=== PATIENT | female | born 1945 | race Native Hawaiian/Other Pacific Islander ===

== ENCOUNTER 2017-10-04 09:29 | Outpatient (CLI) | payer OTHER | END 2017-10-04 19:06 | disposition home or self-care (01) | LOC: MAMMO 09:29 | DX: Z12.31 Encounter for screening mammogram for malignant neoplasm of breast (principal) ==

== ENCOUNTER 2017-11-03 12:51 | Outpatient (CLI) | payer OTHER | END 2017-11-03 19:22 | disposition home or self-care (01) | LOC: MAMMO 12:51 | DX: R92.8 Other abnormal and inconclusive findings on diagnostic imaging of breast (principal) ==

== ENCOUNTER 2018-07-11 20:15 | Outpatient (CLI) | payer OTHER ==
[2018-07-11] MEDS ORDERED: ZESTRIL40 MG PO (21:03)
== END 2018-07-11 20:26 | disposition short-term general hospital (02) ==
LOC: AMB 20:15
DX: R42 Dizziness and giddiness (principal)
CPT/HCPCS: A0425; A0427

== ENCOUNTER 2018-07-11 20:38 | Observation (INO) | payer OTHER ==
[~2018-07-11] VITALS: Ht 152.4 cm; Wt 49.7 kg
[2018-07-11 20:38] VITALS: BP 91/53; TEMP 98.1
[2018-07-11 21:00] VITALS: BP 113/67
[2018-07-11] MEDS ORDERED: ZESTRIL40 MG PO (21:03)
[2018-07-11 21:15] LABS: PLATELET COUNT 259 K/uL (152-353)
[2018-07-11 21:30] VITALS: BP 135/72
[2018-07-11 21:58] LABS: POTASSIUM 3.5 mmol/L (3.6-5.2); SODIUM 137 mmol/L (136-145)
[2018-07-11 22:00] VITALS: BP 146/62
[2018-07-11 22:30] VITALS: BP 126/67; TEMP 97.9
--- NOTE | 2018-07-12 00:09 | NUR ---
PATIENT ARRIVED TO ROOM VIA WHEELCHAIR FROM ER. PATIENT PLEASANT AND IN NO APPARENT DISTRESS. ORIENTED TO ROOM AND CALL MCKNIGHT. NON SKID SOCKS PLACED ON PATIENT AND BED IN LOWEST POSITION.
[2018-07-12 00:11] VITALS: BP 136/67; TEMP 98.3; Ht 152.4 cm; Wt 49.7 kg
[2018-07-12 03:59] VITALS: BP 136/67; TEMP 98.3
--- NOTE | 2018-07-12 05:58 | NUR ---
Patient was admitted with syncope, hypotension, dizziness and IBW - 100+/-10% and is 110%IBW and Kcal needs [id number], pro needs 45 to 55 grams and fluid needs 9308-0685 ml per day. BMI 21.4 wnl's. On a regular diet continue poc.
[2018-07-12 08:00] VITALS: BP 127/71; TEMP 98.7
[2018-07-12 12:00] VITALS: BP 123/90; TEMP 98.4
--- NOTE | 2018-07-12 14:43 | NUR ---
IV TO PATIENTS LEFT FA D/C'D PER DOCTORS ORDERS. DISCHARGE ORDERS GIVEN. PT IS TO FOLLOW UP WITH HER PCP IN 3-5 DAYS. NO ADDITIONAL MEDICATIONS ARE PRESCRIBED. PT LEFT VIA WC. NO DISTRESS NOTED.
== END 2018-07-12 14:27 | disposition home or self-care (01) ==
LOC: ED 20:38 → MED/SURG 22:30
PROVIDERS: Internal Medicine; ADMIT Internal Medicine
DX: R55 Syncope and collapse (principal); I10 Essential (primary) hypertension
CPT/HCPCS: 80053; 81000; 82550; 84484; 85027; 93005; 93306; 99220; 99283; G0378

== ENCOUNTER 2018-08-08 09:46 | Outpatient (CLI) | payer OTHER ==
[~2018-08-08 09:46] MED LIST: ZESTRIL40 MG PO
== END 2018-08-08 22:31 | disposition home or self-care (01) ==
LOC: US 09:46
DX: R55 Syncope and collapse (principal)
CPT/HCPCS: 93225